=== PATIENT | male | born 2000 | race Caucasian/White ===

== ENCOUNTER 2020-05-20 20:00 | Emergency (ER) | payer BC, MEDICAID, OTHER ==
[~2020-05-20] VITALS: Ht 188 cm; Wt 111.4 kg
[2020-05-20] MEDS ORDERED: HYDROcodone/acetaminophen 5mg/325mg tablet PO ONE (20:25)
[2020-05-20] MEDS ORDERED: ondansetron 4mg rapidly disintigrating tab PO ONE (20:25)
[2020-05-20] MEDS ORDERED: ONDA4TAB6 PO (21:26)
[2020-05-20] MEDS ORDERED: HYDR-4383 PO (21:26)
[2020-05-20 21:34] VITALS: BP 148/93
== END 2020-05-20 21:35 | disposition home or self-care (01) ==
LOC: ER 20:01
DX: M25.561 Pain in right knee (principal); Z79.899 Other long term (current) drug therapy; W01.0XXA Fall on same level from slipping, tripping and stumbling without subsequent striking against object, initial encounter; Y93.02 Activity, running; Y92.89 Other specified places as the place of occurrence of the external cause; Y99.8 Other external cause status
CPT/HCPCS: 29505; 73564; 99284

== ENCOUNTER 2021-08-31 23:24 | Emergency (ER) | payer OTHER ==
[~2021-08-31] VITALS: Ht 190.5 cm; Wt 109.1 kg
[~2021-08-31 23:24] MED LIST: HYDR-4383 PO; ONDA4TAB6 PO
[2021-08-31 23:41] VITALS: BP 142/59
== END 2021-09-01 02:52 | disposition left against medical advice (07) ==
LOC: ER 23:24
DX: M25.561 Pain in right knee (principal); M25.562 Pain in left knee; Z04.1 Encounter for examination and observation following transport accident; Z53.21 Procedure and treatment not carried out due to patient leaving prior to being seen by health care provider